=== PATIENT | female | born 1975 | race African-American/Black ===

== ENCOUNTER 2019-06-15 12:32 | Emergency (ER) | payer SELFPAY ==
[2019-06-15] MEDS ORDERED: Ketorolac 30 MG/ML SDV IM ONE (13:29)
--- NOTE | 2019-06-15 13:45 | EDM.PDOC ---
ED HPI GENERAL MEDICAL PROBLEM - General Chief Complaint: Lower Extremity Injury/Pain Stated Complaint: HURT KNEE Time Seen by Provider: 06/15/19 13:20 Source of Information: Reports: Patient, RN History Limitations: Reports: No Limitations - History of Present Illness INITIAL COMMENTS - FREE TEXT/NARRATIVE: 43 year old female who presents with complaints of a right pain x 3 days. She walked into the ER limping. She reports playing volleyball and landed on her feet wrong. She was able to finish the game. After the game, she was descending the stairs when she heard a "pop in her right knee and has been limping since then. She reports she has been applying ice with little relief. Pain has been gradually worsening. She rates it as an 8/10 and describes it as throbbing. Denies any prior right knee injury. Right Knee Pain Score (Numeric/FACES): 8 - Related Data Allergies Allergy/AdvReac Type Severity Reaction Status Date / Time morphine Allergy Cannot Verified 06/15/19 12:41 Remember Home Meds: Home Meds . [No Known Home Meds] 06/15/19 [History] Past Medical History - Past Health History Medical/Surgical History: Denies Medical/Surgical History Social & Family History - Tobacco Use Smoking Status *Q: Current Every Day Smoker Years of Tobacco use: 18 Packs/Tins Daily: 0.5 Review of Systems - Review of Systems Review Of Systems: Comprehensive ROS is negative, except as noted in HPI. ED EXAM, GENERAL - Physical Exam Exam: See Below Exam Limited By: No Limitations General Appearance: Alert, Moderate Distress Peripheral Pulses: 3+: Dorsalis Pedis (L), Dorsalis Pedis (R) Extremities: Normal Capillary Refill, Limited Range of Motion (due to pain. Patient will not flex or extend her right knee.) Neurological: Alert, Oriented, Normal Cognition, No Motor/Sensory Deficits, Abnormal Gait (due to right knee pain) Psychiatric: Anxious Skin Exam: Intact, Ecchymosis (mild bruising noted on the right knee) Course - Vital Signs Last Recorded V/S: Last Vital Signs Temp 98.9 F 06/15/19 12:42 Pulse 89 06/15/19 12:42 Resp 16 06/15/19 12:42 BP 123/79 06/15/19 12:42 Pulse Ox 100 01/24/20 12:42 - Orders/Labs/Meds Meds: Medications Discontinued Medications Generic Name Dose Route Start Last Admin Trade Name Edilson PRN Reason Stop Dose Admin Ketorolac Tromethamine 30 mg 06/15/19 13:29 06/15/19 13:37 Toradol IM 06/15/19 13:30 30 mg ONETIME ONE Administration - Radiology Interpretation Free Text/Narrative:: PROCEDURE INFORMATION: Exam: CT Right Lower Extremity Without Contrast, Knee Exam date and time: 06/15/2019 1:00 PM Age: 43 years old Clinical indication: Injury or trauma; Injury history: Volley ball injury the other night; Initial encounter; Blunt trauma; Knee; Right; Injury date: 06/15/2019 TECHNIQUE: Imaging protocol: CT of the Right lower extremity without contrast was performed. Exam focused on the knee. Radiation optimization: All CT scans at this facility use at least one of these dose optimization techniques: automated exposure control; mA and/or kV adjustment per patient size (includes targeted exams where dose is matched to clinical indication); or iterative reconstruction. COMPARISON: No relevant prior studies available. FINDINGS: Bones/joints: No displaced fracture is identified. An area of subcortical sclerosis in the lateral femoral condyle, however, could relate to osteochondral injury without significant impaction of the articular cortex. The joint spaces are normally aligned. There is mild narrowing of the medial compartment. Mild tricompartmental periarticular osteophyte formation is present. Mild subchondral degenerative cystic changes are present about the medial compartment.. There is a tiny osteochondral body along the medial aspect of the lateral compartment. A superior patellar enthesophyte is present. The left knee is included on some images, and demonstrates degenerative changes as well. Soft tissues: There are moderate to large right and small left joint effusions. The internal structures of the knee are not well evaluated on CT. A small to moderate Fleming's cyst is present on the right. IMPRESSION: RANDI SCHULZ | Final Radiology Report CONFIDENTIALITY STATEMENT This report is intended only for use by the referring physician, and only in accordance with law. If you received this in error, call [phone]. Page 2 of 2 1. No displaced fracture identified, with an area of subchondral sclerosis in the lateral femoral condyle potentially related to osteochondral injury, without significant impaction of the articular cortex. May consider MRI for further characterization of this and any potential internal derangement. 2. Moderate to large right and small left knee joint effusions with a small to moderate right-sided Fleming's cyst. 3. Degenerative changes as described. - Re-Assessments/Exams Free Text/Narrative Re-Assessment/Exam: Ice pack applied on right knee. Toradol [address] right knee results reviewed with patient. Information on supportive treatment given to patient. Encouraged to follow up in the clinic if symptoms do not improve in two weeks. Knee brace applied. 06/15/19 14:49 Departure - Departure Time of Disposition: 14:47 Disposition: Home, Self-Care 01 Preliminary Cause of *Q: Sepsis & Multi System Organ Failure Condition: Fair Clinical Impression: Right knee injury Qualifiers: Encounter type: initial encounter Qualified Code(s): S89.91XA - Unspecified injury of right lower leg, initial encounter Fleming's cyst of knee Qualifiers: Laterality: right Qualified Code(s): M71.21 - Synovial cyst of popliteal space [Fleming], right knee - Discharge Information *PRESCRIPTION DRUG MONITORING PROGRAM REVIEWED*: Not Applicable *COPY OF PRESCRIPTION DRUG MONITORING REPORT IN PATIENT KIRAN: Not Applicable Instructions: How to Use a Knee Immobilizer, [id number], Fleming Cyst Forms: ED Department Discharge Additional Instructions: Instruction included in the AVS. Encouraged to follow up in the clinic with PCP if symptoms do not improve in two weeks. Sepsis Event Note - Evaluation Sepsis Screening Result: No Definite Risk - Focused Exam Vital Signs: Vital Signs Temp Pulse Resp BP Pulse Ox 06/15/19 12:42 98.9 F 89 16 123/79 100 Date Exam was Performed: 06/15/19 Time Exam was Performed: 15:07
== END 2019-06-15 15:11 | disposition home or self-care (01) ==
LOC: EDBD → DL.ED 12:32
DX: S89.91XA Unspecified injury of right lower leg, initial encounter (principal); M71.21 Synovial cyst of popliteal space [Baker], right knee; F17.210 Nicotine dependence, cigarettes, uncomplicated; Z88.5 Allergy status to narcotic agent; W21.06XA Struck by volleyball, initial encounter
CPT/HCPCS: 73700; 96372; 99283; J1885